=== PATIENT | male | born 1960 | race Caucasian/White ===

== ENCOUNTER → 2016-09-10 | Outpatient (CLI) | payer MEDICARE | LOC: CT 09-09 09:00 | DX: R91.8 Other nonspecific abnormal finding of lung field (principal); J60 Coalworker's pneumoconiosis | CPT/HCPCS: 71250 ==

== ENCOUNTER → 2021-12-11 | Outpatient (CLI) | payer MEDICARE | LOC: KOH-I 11:06 | DX: M25.551 Pain in right hip (principal); M16.11 Unilateral primary osteoarthritis, right hip | CPT/HCPCS: 73502 ==

== ENCOUNTER → 2021-12-11 | Outpatient (CLI) | payer MEDICARE ==
[2021-12-11 08:32] LABS: HEMOGLOBIN 13.2 gm/dl (14.0-17.5); RED BLOOD COUNT 4.27 M/UL (4.20-5.50); WHITE BLOOD COUNT 7.9 K/UL (4.5-11.0)
[2021-12-11 09:15] LABS: BUN/CREATININE RATIO 16 (0-10)
[2021-12-12 08:12] LABS: RHEUMATOID ARTHRITIS FACTOR 222.4 IU/mL (<14.0)
[2021-12-14 12:10] LABS: CHOLESTEROL, TOTAL 166 mg/dL (100-199); HDL SIZE 9.8 nm (>=9.2); HDL-C 54 mg/dL (>39); HDL-P (TOTAL) 31.7 umol/L (>=30.5); LARGE HDL-P 10.4 umol/L (>=4.8); LARGE VLDL-P 14.3 nmol/L (<=2.7); LDL SIZE 20.2 nm (>20.5); LDL SIZE 20.2 nm (>=20.8); LDL-C 70 mg/dL (0-99); LDL-P 737 nmol/L (<1000); LP-IR SCORE 53 (<=45); SMALL LDL-P 377 nmol/L (<=527); TRIGLYCERIDES 261 mg/dL (0-149); VLDL SIZE 56.3 nm (<=46.6)
== END ==
LOC: LAB 08:09
PROVIDERS: Emergency Medicine
DX: Z12.5 Encounter for screening for malignant neoplasm of prostate (principal); I25.10 Atherosclerotic heart disease of native coronary artery without angina pectoris; I10 Essential (primary) hypertension; E78.2 Mixed hyperlipidemia; E11.9 Type 2 diabetes mellitus without complications
CPT/HCPCS: 36415; 80053; 80061; 83036; 83704; 84443; 84550; 85025; 86038; 86200; 86431; G0103

== ENCOUNTER → 2021-12-28 | Outpatient (CLI) | payer MEDICARE | LOC: EXRD 12:51 → KOH-I 12:51 → EXRD 13:00 → KOH-I 15:15 | DX: M25.551 Pain in right hip (principal); M79.662 Pain in left lower leg; R60.0 Localized edema; Z91.041 Radiographic dye allergy status | CPT/HCPCS: 77080; 93971 ==